=== PATIENT | male | born 1975 | race Caucasian/White ===

== ENCOUNTER 2017-01-01 09:52 | Emergency (ER) | payer OTHER ==
[2017-01-01 10:11] VITALS: BP 123/76
--- NOTE | 2017-01-01 10:20 | UC ---
Ear Complaint HPI - HPI Summary HPI Summary: 3 days of worsening left ear pain and drainage decreased hearing as well-- - History of Current Complaint Chief Complaint: UCEar Stated Complaint: LEFT EAR COMPLAINT Time Seen by Provider: 01/01/17 10:14 Hx Obtained From: Patient Onset/Duration: Gradual Onset, Worse Since - past 3 days Severity Initially: Mild Severity Currently: Moderate Pain Intensity: 7 Pain Scale Used: 0-10 Numeric Aggravating Factors: Nothing Alleviating Factors: Nothing Associated Signs/Symptoms: Positive: Discharge, Hearing Loss Related History: Seasonal Allergies - Allergies/Home Medications Allergies/Adverse Reactions: Allergies Allergy/AdvReac Type Severity Reaction Status Date / Time No Known Allergies Allergy Verified 01/01/17 10:03 Home Medications: Home Medications Baclofen TAB* [Lioresal TAB*] 1 tab DAILY PRN 01/01/17 [History Confirmed ] Meloxicam [Vivlodex] 10 mg PO DAILY PRN 01/01/17 [History Confirmed 01/01/17] Omeprazole CAP* [Prilosec CAP* 20 MG] 1 tab DAILY 01/01/17 [History Confirmed ] PMH/Surg Hx/FS Hx/Imm Hx Previously Healthy: No GI/ History: Gastroesophageal Reflux - Surgical History Surgical History: None - Family History Known Family History: Positive: None - Social History Occupation: Employed Full-time Lives: With Family Alcohol Use: None Substance Use Type: None Smoking Status (MU): Never Smoked Tobacco Have You Smoked in the Last Year: No - Immunization History Most Recent Influenza Vaccination: NONE 2016 Review of Systems Constitutional: Negative Skin: Negative Eyes: Negative ENT: Ear Ache - left, Nasal Discharge, Sinus Congestion Respiratory: Negative Cardiovascular: Negative Gastrointestinal: Negative Genitourinary: Negative Motor: Negative Neurovascular: Negative Musculoskeletal: Negative Neurological: Negative Psychological: Negative Is Patient Immunocompromised?: No All Other Systems Reviewed And Are Negative: Yes Physical Exam Triage Information Reviewed: Yes Appearance: Well-Appearing, Well-Nourished, Pain Distress - mild Vital Signs: Initial Vital Signs Temp 97.6 F 01/01/17 10:05 Pulse 63 01/01/17 10:05 Resp 16 01/01/17 10:05 BP 123/76 01/01/17 10:05 Pulse Ox 97 01/01/17 10:05 Vital Signs Reviewed: Yes Eye Exam: Normal Eyes: Positive: Conjunctiva Clear ENT Exam: Normal ENT: Positive: Normal ENT inspection, Hearing grossly normal, Pharynx normal, Nasal congestion, Nasal drainage, TMs normal - right, Other: - left tm appears to be ruptured---also noted fluid in the canal. Negative: Tonsillar swelling, Tonsillar exudate, Trismus, Muffled/hoarse voice Dental Exam: Normal Neck exam: Normal Neck: Positive: 1 Respiratory Exam: Normal Respiratory: Positive: Chest non-tender, No respiratory distress, No accessory muscle use Cardiovascular Exam: Normal Cardiovascular: Positive: RRR, Pulses Normal, Brisk Capillary Refill Musculoskeletal Exam: Normal Musculoskeletal: Positive: Strength Intact, ROM Intact Neurological Exam: Normal Neurological: Positive: Alert, Muscle Tone Normal Psychological Exam: Normal Skin Exam: Normal Ear Complaint Course/Dx - Course Course Of Treatment: amoxicillin, zyrtec D, keep ear dry follow with MD to assure healing - Differential Dx/Diagnosis Differential Diagnosis/HQI/PQRI: Cerumen Impaction, Otitis Externa, Otitis Media , Perforated TM Provider Diagnoses: Left Otitis Media, Ruptured TM Discharge - Discharge Plan Condition: Stable Disposition: HOME Prescriptions: Amoxicillin PO (*) [Amoxicillin 875 MG (*)] 875 mg PO BID #20 tab Cetirizine-Pseudoephedrine [Zyrtec-D Allergy/Congesti] 1 tab PO BID #14 tab Patient Education Materials: Cetirizine (By mouth), Ruptured Eardrum (ED), Amoxicillin (By mouth) Referrals: Shannan Cuellar [Primary Care Provider] - 2 Weeks
== END 2017-01-01 10:29 | disposition home or self-care (01) ==
LOC: UCCORT 09:52
DX: H66.92 Otitis media, unspecified, left ear (principal); H72.92 Unspecified perforation of tympanic membrane, left ear; K21.9 Gastro-esophageal reflux disease without esophagitis
CPT/HCPCS: 99212; G0463

== ENCOUNTER 2017-09-07 16:42 | Emergency (ER) | payer OTHER ==
[2017-09-07 17:19] VITALS: BP 130/83
--- NOTE | 2017-09-07 17:51 | UC ---
Skin Complaint HPI - HPI Summary HPI Summary: 41 yo WM c/o erythematous and tender skin lesions that cropped up in his right forehead and above right brow. States he has a new bipap mask that is irritating his scalp and he keeps scratching that area and then elsewhere on his head - History of Current Complaint Chief Complaint: UCGeneralIllness Time Seen by Provider: 09/07/17 17:14 Stated Complaint: [place] SWELLING/BUMP ON UPPER RIGHT FORHEAD Hx Obtained From: Patient Onset/Duration: Gradual Onset, Lasting Days Skin Exposure Onset/Duration: Days Ago Onset Severity: Moderate Current Severity: Moderate Pain Intensity: 6 Pain Scale Used: 0-10 Numeric Location: Diffuse Aggravating Factor(s): Touch Alleviating Factor(s): Nothing Associated Signs & Symptoms: Positive: Negative - Allergy/Home Medications Allergies/Adverse Reactions: Allergies Allergy/AdvReac Type Severity Reaction Status Date / Time No Known Allergies Allergy Verified 01/01/17 10:03 Review of Systems Constitutional: Negative Skin: Other - irritating skin lesions Eyes: Negative ENT: Negative Respiratory: Negative Cardiovascular: Negative Gastrointestinal: Negative Genitourinary: Negative Motor: Negative Neurovascular: Negative Musculoskeletal: Negative Neurological: Negative Psychological: Negative All Other Systems Reviewed And Are Negative: Yes PMH/Surg Hx/FS Hx/Imm Hx Previously Healthy: Yes - Surgical History Surgical History: Yes Surgery Procedure, Year, and Place: LASER SPINE. RIGHT ARM ULNAR NERVE DECOMPRESSION AND CTR. LEFT CTR - Family History Known Family History: Positive: None - Social History Alcohol Use: None Substance Use Type: None Smoking Status (MU): Never Smoked Tobacco Have You Smoked in the Last Year: No - Immunization History Most Recent Influenza Vaccination: NONE 2016 Physical Exam Triage Information Reviewed: Yes Appearance: Well-Appearing Vital Signs: Initial Vital Signs Temp 36.8 C 09/07/17 17:11 Pulse 63 09/07/17 17:11 Resp 14 09/07/17 17:11 BP 130/83 09/07/17 17:11 Pulse Ox 98 09/07/17 17:11 Eye Exam: Normal ENT Exam: Normal Dental Exam: Normal Neck exam: Normal Neck: Positive: 1 Respiratory Exam: Normal Cardiovascular Exam: Normal Abdominal Exam: Normal Musculoskeletal Exam: Normal Neurological Exam: Normal Psychological Exam: Normal Skin: Positive: significant lesion(s) - 1x1cm raised tender erythematous skin lesions on right upper forehead near the hairline and above right brow, small area of erythema on right parietal region of scalp where the top portion of bipap mask elastic would be worn, no area of skin break in scalp, no weeping lesions Course/Dx - Diagnoses Provider Diagnoses: Skin infection. Scalp irritation Discharge - Sign-Out/Discharge Documenting (check all that apply): Discharge/Admit/Transfer - Discharge Plan Condition: Stable Disposition: HOME Prescriptions: Amoxicillin/Clavulanate TAB* [Augmentin TAB 875*] 875 mg PO BID 7 Days #14 tab Mupirocin 2% OINT* [Bactroban 2 % Oint*] 1 applic TOPICAL BID 7 Days #1 tube Patient Education Materials: Cellulitis (ED) Referrals: Shannan Cuellar [Primary Care Provider] - - Billing Disposition and Condition Condition: STABLE Disposition: HOME
== END 2017-09-07 17:48 | disposition home or self-care (01) ==
LOC: UCCORT 16:42
DX: L08.9 Local infection of the skin and subcutaneous tissue, unspecified (principal); L98.9 Disorder of the skin and subcutaneous tissue, unspecified
CPT/HCPCS: 99212; G0463

== ENCOUNTER 2017-09-24 07:57 | Emergency (ER) | payer OTHER ==
[2017-09-24 08:22] VITALS: BP 126/76
--- NOTE | 2017-09-24 08:45 | UC ---
Abdominal Pain Female HPI - HPI Summary HPI Summary: epigastric abdominal pain x 1 days pain is constant , 5 out of 10 ,no radiation , + nausea , no vomiting , no diarrhea , no constipation no urinary symptoms Hx of GERD - History of Current Complaint Chief Complaint: UCGI Stated Complaint: STOMACH ACH Time Seen by Provider: 09/24/17 08:34 Hx Obtained From: Patient Onset/Duration: Gradual Onset, Lasting Days - 1, Still Present Timing: Constant Severity Initially: Moderate Severity Currently: Moderate Pain Intensity: 0 Location: Epigastric Radiates: No Character: Aching, Burning Aggravating Factor(s): Food Alleviating Factor(s): NPO Associated Signs and Symptoms: Positive: Nausea. Negative: Fever, Cough, Chest Pain, Dizzy, Back Pain, Constipation, Blood in Stool, Urinary Symptoms, Decreased Appetite, Vaginal Bleeding, Vaginal Discharge, Vomiting, Diarrhea, Other: Allergies/Adverse Reactions: Allergies Allergy/AdvReac Type Severity Reaction Status Date / Time No Known Allergies Allergy Verified 09/24/17 08:23 Home Medications: Home Medications Carbamide Peroxide [Ear Drops] 5 yogesh OT BID PRN 09/24/17 [History Confirmed 04/01] PMH/Surg Hx/FS Hx/Imm Hx GI/ History: Gastroesophageal Reflux - Surgical History Surgical History: Yes Surgery Procedure, Year, and Place: LASER SPINE. RIGHT ARM ULNAR NERVE DECOMPRESSION AND CTR. LEFT CTR - Family History Known Family History: Positive: None Negative: Diabetes - Social History Alcohol Use: None Substance Use Type: None Smoking Status (MU): Never Smoked Tobacco Have You Smoked in the Last Year: No - Immunization History Most Recent Influenza Vaccination: NONE 2016 Review of Systems Constitutional: Negative Skin: Negative Eyes: Negative ENT: Negative Respiratory: Negative Cardiovascular: Negative Gastrointestinal: Abdominal Pain, Nausea Is Patient Immunocompromised?: No All Other Systems Reviewed And Are Negative: Yes Physical Exam Triage Information Reviewed: Yes Appearance: Well-Appearing, No Pain Distress, Obese Vital Signs: Initial Vital Signs Temp 98.1 F 09/24/17 08:10 Pulse 63 09/24/17 08:10 Resp 18 09/24/17 08:10 BP 126/76 09/24/17 08:10 Pulse Ox 96 09/24/17 08:10 Vital Signs Reviewed: Yes Eye Exam: Normal ENT: Positive: Normal ENT inspection, Hearing grossly normal, Pharynx normal, Pharyngeal erythema Neck: Positive: Supple, Nontender, No Lymphadenopathy Respiratory: Positive: Chest non-tender, Lungs clear, Normal breath sounds Cardiovascular: Positive: RRR, No Murmur, Pulses Normal Abdomen Description: Positive: Soft, Other: - epigastric tenderness. Negative: CVA Tenderness (R), CVA Tenderness (L), Distended, Guarding Bowel Sounds: Positive: Present Abd Pain Female Course/Dx - Differential Dx/Diagnosis Provider Diagnoses: Gastritis Discharge - Sign-Out/Discharge Documenting (check all that apply): Discharge/Admit/Transfer - Discharge Plan Condition: Stable Disposition: HOME Prescriptions: Omeprazole 40 mg PO DAILY #30 cap Patient Education Materials: Gastritis (ED) Referrals: Shannan Cuellar [Primary Care Provider] - 7 Days - Billing Disposition and Condition Condition: STABLE Disposition: Home
== END 2017-09-24 08:47 | disposition home or self-care (01) ==
LOC: UCCORT 07:57
DX: K29.70 Gastritis, unspecified, without bleeding (principal)
CPT/HCPCS: 99212; G0463

== ENCOUNTER 2018-01-05 08:55 | Emergency (ER) | payer OTHER ==
[2018-01-05 09:18] VITALS: BP 130/83
--- NOTE | 2018-01-05 09:24 | UC ---
Throat Pain/Nasal George HPI - HPI Summary HPI Summary: per nursing: SORE THROAT SINCE SATURDAY .SEEN AT THE [facility] SAME DAY.WAS DX IRRATATED THROAT. HE STATES HE WAS NOT TESTED FOR STREP. GIVEN IBUPROPHEN 800MG RX FOR PAIN. HAS SINCE DEVELOPED A COUGH AND RUNNY NOSE. LEFT EAR FEELS PLUGGGED AND HEARS AN ECHO. NO FEVER HE IS AWARE OF. CHILLED LAST NIIGHT. FEELS DIZZY AT TIMES. NO VOMITING OR DIARRHEA. this morning feels like fluid is in his ear and havbing difficulty hearing out of it. - History of Current Complaint Chief Complaint: UCRespiratory Stated Complaint: SORE THROAT,COUGH,EARS Time Seen by Provider: 01/05/18 09:11 Hx Obtained From: Patient Onset/Duration: Sudden Onset, Lasting Weeks - 1 Severity: Moderate Pain Intensity: 7 Associated Signs & Symptoms: Positive: Dysphagia, Sinus Discomfort, Nasal Discharge - Allergies/Home Medications Allergies/Adverse Reactions: Allergies Allergy/AdvReac Type Severity Reaction Status Date / Time No Known Allergies Allergy Verified 01/05/18 09:08 Home Medications: Home Medications Ibuprofen TAB* [Motrin TAB* 800 MG] 800 mg PO Q6H PRN 01/05/18 [History Confirmed 01/05/18] PMH/Surg Hx/FS Hx/Imm Hx Previously Healthy: Yes - Surgical History Surgical History: Yes Surgery Procedure, Year, and Place: LASER SPINE. RIGHT ARM ULNAR NERVE DECOMPRESSION AND CTR. LEFT CTR - Family History Known Family History: Positive: None Negative: Diabetes - Social History Alcohol Use: None Substance Use Type: None Smoking Status (MU): Never Smoked Tobacco Have You Smoked in the Last Year: No - Immunization History Most Recent Influenza Vaccination: NONE 2017 Review of Systems Constitutional: Chills, Fatigue Skin: Negative Eyes: Negative ENT: Sore Throat, Ear Ache, Sinus Congestion Respiratory: Cough Cardiovascular: Negative Gastrointestinal: Negative Genitourinary: Negative Motor: Negative Neurovascular: Negative Musculoskeletal: Negative Neurological: Headache Psychological: Negative Is Patient Immunocompromised?: No All Other Systems Reviewed And Are Negative: Yes Physical Exam Triage Information Reviewed: Yes Appearance: Well-Nourished, Ill-Appearing, Pain Distress Vital Signs: Initial Vital Signs Temp 97.8 F 01/05/18 09:10 Pulse 63 01/05/18 09:10 Resp 18 01/05/18 09:10 BP 130/83 01/05/18 09:10 Pulse Ox 99 01/05/18 09:10 Vital Signs Reviewed: Yes Eye Exam: Normal ENT: Positive: Pharyngeal erythema, TM bulging, TM dull, TM red - left, fluid in the external canal noted, Tonsillar swelling Dental Exam: Normal Neck exam: Normal Neck: Positive: Supple, Nontender, Enlarged Nodes @ - tonsilar Respiratory Exam: Normal Respiratory: Positive: Chest non-tender, No accessory muscle use, Respiratory distress, Wheezing, Inspiration Cardiovascular Exam: Normal Cardiovascular: Positive: RRR, No Murmur, Pulses Normal Abdominal Exam: Normal Abdomen Description: Positive: Nontender, No Organomegaly, Soft Musculoskeletal Exam: Normal Neurological Exam: Normal Psychological Exam: Normal Skin Exam: Normal Throat Pain/Nasal Course/Dx - Course Course Of Treatment: hx obtained, exam performed, meds reviewed, rapid strep obtained, neb treatement given, treated for left otitis media and bronchitis - Differential Dx/Diagnosis Differential Diagnosis/HQI/PQRI: Pharyngitis, Sinusitis, Tonsillitis, URI Provider Diagnoses: bronchitis. left otitis media Discharge - Sign-Out/Discharge Documenting (check all that apply): Patient Departure All imaging exams completed and their final reports reviewed: Yes - Discharge Plan Condition: Stable Disposition: HOME Patient Education Materials: Acute Bronchitis (ED) Referrals: Alex Shahid MD [Primary Care Provider] - Additional Instructions: 1. Take the medication as prescribed. 2. Warm compresses to the right ear. 3. Get plenty of rest and increase fluid intake 4. Continue with Ibuprofen as needed for pain and fever. 5. Your strep test was negative - Billing Disposition and Condition Condition: STABLE Disposition: Home
[2018-01-05] MEDS ORDERED: Albuterol 2.5 MG/3 ML NEB.SOL* (0.083%) INH ONE (09:30)
== END 2018-01-05 10:02 | disposition home or self-care (01) ==
LOC: UCCORT 08:55
DX: J40 Bronchitis, not specified as acute or chronic (principal); H66.92 Otitis media, unspecified, left ear
CPT/HCPCS: 87651; 99212; G0463

== ENCOUNTER 2018-01-19 09:20 | Emergency (ER) | payer OTHER ==
[2018-01-19 09:36] VITALS: BP 137/90
--- NOTE | 2018-01-19 09:50 | UC ---
UC General HPI - HPI Summary HPI Summary: patient presents to urgent care center with 2 complaints. Patient was recently treated for an ear infection with oral antibiotic. Patient states his pain is gotten better but he still feels like he has poor hearing in the left side. Patient has any ear drainage. Patient would like that checked. Secondly , patient states he developed a hemorrhoid over the last 3-4 days. Patient states he's had them in the past. Patient states once was surgically removed in [place] approximately 8 years ago. Patient states he's been using Preparation H with little improvement. Patient denies constipation but states his stool I'll well-formed. Patient has not taken anything for pain other than Preparation H. Patient's unsure if it's bleeding. Patient denies any fevers or chills. Patient's medications reviewed this visit. - History of Current Complaint Chief Complaint: UCEar Stated Complaint: EAR COMPLAINT/PERSONAL Time Seen by Provider: 01/19/18 09:38 Hx Obtained From: Patient Onset Severity: Moderate Current Severity: Moderate Pain Intensity: 7 - Allergy/Home Medications Allergies/Adverse Reactions: Allergies Allergy/AdvReac Type Severity Reaction Status Date / Time No Known Allergies Allergy Verified 01/19/18 09:29 PMH/Surg Hx/FS Hx/Imm Hx Previously Healthy: Yes GI/ History: Other Other GI/ History: hemorrhoid - Surgical History Surgical History: Yes Surgery Procedure, Year, and Place: LASER SPINE. RIGHT ARM ULNAR NERVE DECOMPRESSION AND CTR. LEFT CTR - Family History Known Family History: Positive: Other - Noncontributory Negative: Diabetes - Social History Occupation: Employed Full-time Lives: With Family Alcohol Use: None Substance Use Type: None Smoking Status (MU): Never Smoked Tobacco Have You Smoked in the Last Year: No - Immunization History Most Recent Influenza Vaccination: NONE 2016 Review of Systems Constitutional: Negative Skin: Negative ENT: Other Genitourinary: Other - Hemorrhoid All Other Systems Reviewed And Are Negative: Yes Physical Exam - Summary Physical Exam Summary: Vital Signs Reviewed: Yes A+Ox3, no distress Eyes: Conjunctiva Clear, LYLE. EOM intact and full ENT: Hearing grossly normal, right TM wnl. left TM with serous fluids behind TM - no erythema, no buldge, turbiantes mild inflammation, no PND, mmoist, uvula midline, no exudate, no erythema Neck: Positive: Supple Respiratory: Positive: No respiratory distress, No accessory muscle use + CTA throughout no w/r Cardiovascular: RRR nl s1, s2 no m/r CBT <2 sec abd soft + BS nt/nd no guarding, no distension RN at bedside [place]: Pt with 1.5cm thrombosed hemorrhoid 9 o;clock, firm, small am bleeding. No fluctance or fullness with rectal exam. Musculoskeletal Exam: GONZALEZ x 4 without difficulty Strength Intact, ROM Intact Neurological: Positive: Alert, + sensation throughout Psychological: Positive: Normal Response To Family Skin: Positive: no rash, no ecchymosis Triage Information Reviewed: Yes Vital Signs: Initial Vital Signs Temp 97.6 F 01/19/18 09:31 Pulse 68 01/19/18 09:31 Resp 16 01/19/18 09:31 BP 137/90 01/19/18 09:31 Pulse Ox 98 01/19/18 09:31 Course/Dx - Course Course Of Treatment: Patient presents to urgent care 2 complaints. One, patient with decreased hearing from his left ear. Patient with a recent otitis media. On exam patient still with some serous fluid there. Does not appear infected at this time. We'll prescribe Flonase. Patient has a follow-up appointment with Dr. Steven. Encourage patient to keep this appointment. No further management. Second, patient with a small thrombosed hemorrhoid. Patient with scant bleeding. No internal hemorrhoids or discomfort with exam. No concern for perirectal abscess at this time. We'll prescribe Anusol. Suspect. Colace. Motrin Tylenol. Warm soaks. Patient given referral to surgeons. Patient comfortable in agreement with plan. Patient ED if symptoms change or any other concerns. - Differential Dx - Multi-Symptom Provider Diagnoses: hemorrhoid. serous otitis media Discharge - Sign-Out/Discharge Documenting (check all that apply): Patient Departure All imaging exams completed and their final reports reviewed: No Studies - Discharge Plan Condition: Stable Disposition: HOME Prescriptions: Docusate CAP* [Colace Cap*] 100 mg PO BID #20 cap Fluticasone NASAL SPRAY 50MCG* [Flonase NASAL SPRAY 50MCG*] 2 spray BOTH NARES DAILY #1 btl Hydrocortisone SUPP* [Anusol HC Supp*] 25 mg .SEE ORDER BID #14 supp Patient Education Materials: Hemorrhoids (ED), Serous Otitis Media (ED) Referrals: Alex Shahid MD [Primary Care Provider] - Zenon Bauer [Medical Doctor] - Donny Kidd MD [Medical Doctor] - Additional Instructions: - for your ear - use nasal spray daily as instructed - keep your appointment as scheduled with Dr. Steven - For your hemorrhoid: - use annusol suppository twice daily as prescribed - use colace stools softer to prevent constipation - take warm sitz baths or apply warm soaks 2-3 times a day - okay to alternate ibuprofen (Advil, Motrin) and tylenol every 3hours for pain. Take with food - Billing Disposition and Condition Condition: STABLE Disposition: Home
== END 2018-01-19 10:22 | disposition home or self-care (01) ==
LOC: UCCORT 09:20
DX: K64.5 Perianal venous thrombosis (principal); H65.92 Unspecified nonsuppurative otitis media, left ear
CPT/HCPCS: 99212; G0463